=== PATIENT | female | born 1955 | race Caucasian/White ===

== ENCOUNTER → 2023-05-09 08:47 | Outpatient (REF) | payer MEDICARE, OTHER, SELFPAY ==
[2023-05-09 12:32] LABS: Microalbumin, Random Urine <0.6 mg/dl (0.6-1.7)
== END ==
LOC: HWLAB 08:47
PROVIDERS: ATTENDING PHYSICIAN Specialist; FAMILY PHYSICIAN Physician Assistant Medical
DX: I15.8 Other secondary hypertension (principal)
CPT/HCPCS: 36415; 82043; 82570

== ENCOUNTER → 2023-07-02 11:01 | Outpatient (REF) | payer MEDICARE, OTHER, SELFPAY ==
[2023-07-02 12:28] LABS: % Basophils 0.9 % (0-2); % Eosinophils 8.2 % (0-6); % Immature Granulocytes 0.2 % (0-0.5); % Lymphocytes 32.9 % (20.5-51.1); % Monocytes 6.9 % (1.7-9.3); % Neutrophils 50.9 % (42.2-75.2); Absolute Basophils 0.1 10^3/uL (0-0.2); Absolute Eosinophils 0.5 10^3/uL (0-0.7); Absolute Lymphocytes 1.8 10^3/uL (1.2-3.4); Absolute Monocytes 0.4 10^3/uL (0.1-0.6); Absolute Neutrophils 2.8 10^3/uL (1.4-6.5); Hematocrit 44.7 % (37.0-47.0); Hemoglobin 14.5 g/dL (12.0-16.0); Mean Corp Hgb Conc. 32.4 g/dL (33.0-37.0); Mean Corpuscular Hgb 28.9 pg (27.0-31.0); Mean Corpuscular Volume 89.2 fL (81.0-99.0); Mean Platelet Volume 11.6 fL (7.4-10.4); Nucleated Red Blood Cells % 0 %; Platelet Count 170 10^3/uL (130-400); Red Blood Cell Count 5.01 10^6/uL (4.20-5.40); Red Cell Dist. Width 13.2 % (11.5-14.5); White Blood Cell Count 5.5 10^3/uL (4.8-10.8)
[2023-07-02 13:27] LABS: ALT (SGPT) 20 U/L (0-35); AST (SGOT) 29 U/L (14-36); Albumin 4.4 g/dl (3.5-5.0); Alkaline Phosphatase 77 U/L (38-126); Blood Urea Nitrogen 17 mg/dl (7-17); Calcium 9.9 mg/dl (8.4-10.2); Carbon Dioxide 29 mmol/L (22-30); Chloride 102 mmol/L (98-107); Glucose 87 mg/dl (70-99); HDL Cholesterol 95 mg/dl; LDL Cholesterol, Calculated 49 mg/dl; Potassium 4.7 mmol/L (3.5-5.1); Sodium 137 mmol/L (135-145); Total Bilirubin 0.6 mg/dl (0.2-1.3); Total Cholesterol 159 mg/dl (50-199); Triglyceride 78 mg/dl (10-149); Very Low Density Lipoprotein 15 mg/dl (0-30); eGFR > 60.00
[2023-07-02 13:34] LABS: Vitamin D, 25-OH*** 50.8 ng/mL (30-80)
[2023-07-02 13:37] LABS: LDL Cholesterol, Direct 70 mg/dl
[2023-07-02 13:45] LABS: TSH 0.73 uIU/ml (0.47-4.68)
== END ==
LOC: REG 11:01
PROVIDERS: ATTENDING PHYSICIAN Nuclear Medicine Nuclear Cardiology; FAMILY PHYSICIAN Physician Assistant Medical; REFERRING PHYSICIAN Physician Assistant
DX: Z00.00 Encounter for general adult medical examination without abnormal findings (principal); E04.1 Nontoxic single thyroid nodule; E78.5 Hyperlipidemia, unspecified; I10 Essential (primary) hypertension; M81.0 Age-related osteoporosis without current pathological fracture; I25.2 Old myocardial infarction; E55.9 Vitamin D deficiency, unspecified; Z51.81 Encounter for therapeutic drug level monitoring
CPT/HCPCS: 36415; 80053; 80061; 82306; 83721; 84443; 85025

== ENCOUNTER → 2023-08-12 09:08 | Outpatient (REF) | payer MEDICARE, OTHER, SELFPAY | LOC: HWWDC 09:08 | PROVIDERS: ATTENDING PHYSICIAN Physician Assistant Medical; REFERRING PHYSICIAN Obstetrics & Gynecology Gynecology | DX: Z00.00 Encounter for general adult medical examination without abnormal findings (principal); E04.1 Nontoxic single thyroid nodule | CPT/HCPCS: 76536; 77063; 77067 ==

== ENCOUNTER → 2023-08-16 10:51 | Outpatient (REF) | payer MEDICARE, OTHER, SELFPAY | LOC: RAD 10:51 | PROVIDERS: ATTENDING PHYSICIAN Chiropractor; FAMILY PHYSICIAN Physician Assistant Medical | DX: M53.2X7 Spinal instabilities, lumbosacral region (principal); R10.2 Pelvic and perineal pain; M25.551 Pain in right hip | CPT/HCPCS: 72110; 72170; 73502 ==

== ENCOUNTER 2023-09-24 07:10 | Emergency (ER) | payer MEDICARE, OTHER, SELFPAY ==
[2023-09-24 07:10] VITALS: BMI 21.5
[2023-09-24 07:15] VITALS: BP 158/85
--- NOTE | 2023-09-24 07:51 | ED.GENMED ---
History of Present Illness
<Tori Muñoz PA-C - Last Filed: 09/25/23 10:08>
General
Chief Complaint: Fatigue
Source: patient
Exam Limitations: none
Time Seen by Provider: 09/24/23 07:28
Nursing documentation reviewed up to this point in time: agreed with
History of Present Illness
History of Present Illness:
pt is a 68 y/o F h/o primary hyperaldosteronism, htn, VA, no stents
here with concerns that she noticed early 2 am this morning with L face tingling/pain that felt strange when she woke up to use the bathroom and became nervous
she felt jittery and a little anxious
she didn't sleep well
woke up this morning 630 and checked her bp which was unusually high 180/70 and she toko an extra metoprolol (25 rather than 12.5) because she thought maybe it was high because she missed her dose last night. she noticed left arm tingling as well
no weakness, headache, cp, sob, vision changes, balance changes
but she feels a wiped out and a little lightheaded, not herself
[place] volunteering for the [employer]
she denies fever, chills, urinary sypmtoms
Past History
<Tori Muñoz PA-C - Last Filed: 09/25/23 10:08>
Past History
ED Past Medical History: CAD, HTN, Hypercholesterolemia, VA (Very small VA, neg cath, possible cornary spasm) and Hypothyroidism
ED Past Surgical History: Cardiac (Cardiac catheterization showed no significant obstructive disease)
Social History
Tobacco: Non-smoker
Alcohol: None
Personal:
Living: with family
Employment: Employed
Family History
Family History: Other (Mother with a history of atrial fibrillation )
Review of Systems
<Tori Muñoz PA-C - Last Filed: 09/25/23 10:08>
Review of Systems
Allergies reviewed?: Yes
All Other Systems: Not applicable
Phy Exam
<Tori Muñoz PA-C - Last Filed: 09/25/23 10:08>
Physical Exam
Physical Exam:
GENERAL: Alert , in no apparent distress
HEAD: NCAT
FACE: normal function, no asymmetry, normal sensation
EYE: pupils equal and reactive, no nystagmus, no photophobia
NECK: Supple,full rom, nontender
ENT: o/p clr, dry mouth; mild pharyngeal erythema
CARDIAC: Regular rate and rhythm . no edema
LUNGS: Clear breath sounds bilaterally, no acute respiratory distress, no wheezes/rales/rhonchi
ABDOMEN: Soft, without focal tenderness, no r/g, no cvat
NEUROLOGICAL: Alert and orientedx 4, cn intact, no facial asymmetry, 5/5 strength in UE/LE, sensation intact, sepcifically to face, objective facial numbness, romberg neg, ambulates without assistance, neg pronator drift
SKIN: Warm and dry, skin intact. no rash
MUSCULOSKELETAL: No edema, well perfused.
PSYCH: Normal and appropriate interaction.
Course
<Tori Muñoz PA-C - Last Filed: 09/25/23 10:08>
Orders/Labs/Results
Orders:
Orders
09/24/23 07:18
Electrocardiogram (*1) Urgent
Reason for Study: Fatigue / Weakness
EKG- Treatment ONCE
09/24/23 07:50
CT Head W/o Iv Contrast Urgent
Comment:
Reason For Exam: left face, left arm tingling
Cardiac Monitoring- Treatment ONCE
09/24/23 08:00
Complete Blood Count/With Diff Urgent
Comprehensive Metabolic Panel Urgent
Creatine Phosphokinase Urgent
Comment: ADD ON
Magnesium Urgent
TSH Reflex To Free T4 Urgent
Comment: ADD ON
Troponin I Urgent
09/24/23 08:15
Urinalysis Reflex To Culture Urgent
Date Specimen was Collected: 09/24/23
Time Specimen was Collected: 08:08
Urine Microscopic Reflex Cult Urgent
Urine Culture Urgent
SAM Source: U
Specimen Description:
Date Specimen was Collected: 09/24/23
Time Specimen was Collected: 08:08
09/24/23 09:01
Add On- LAB Urgent
Tests Added?: cpk
09/24/23 09:23
0.9% Sodium Chloride 500 ml [Nss] 500 ml IV BOLUS
09/24/23 09:24
EKG- Treatment ONCE
09/24/23 09:34
COVID-19 Antigen Urgent
Source: Nasal Swab
09/24/23 10:00
Add On- LAB Urgent
Tests Added?: tsh reflex t4
09/24/23 10:30
Electrocardiogram (*1) Urgent
Reason for Study: Fatigue / Weakness
09/24/23 10:32
Troponin I Urgent
09/24/23 11:29
CT Head & Neck Angio W/wo IV Urgent
Comment:
Reason For Exam: L face tingling, L arm tingling today
Abnormal Lab Results
09/24/23 09/24/23
08:00 08:15
MPV 10.5 H fL
(7.4-10.4)
Eosinophils % 7.6 H %
(0-6)
Carbon Dioxide 31 H mmol/L
(22-30)
BUN 24 H mg/dl
(7-17)
Creatinine 1.1 H mg/dL
(0.6-1.0)
Ur Occult Blood Reflex 3+ A
(Negative)
Leukocyte Esterase Rfl 1+ A
(Negative)
Urine RBC 16-20 A /HPF
(0-2)
Urine WBC (Reflex) 11-15 A /HPF
(0-5)
Urine Bacteria (Reflex) Few A
(Negative)
09/24/23 08:00
09/24/23 08:00
Vital Signs
Initial and Last Documented VS:
Initial Vital Signs
Temp Pulse Resp BP Pulse Ox
97.9 F 53 16 158/85 98
09/24/23 07:15 09/24/23 07:15 09/24/23 07:15 09/24/23 07:15 09/24/23 07:15
Last Documented Vital Signs
Temp Pulse Resp BP Pulse Ox
97.9 F 59 16 146/79 98
09/24/23 07:15 09/24/23 09:19 09/24/23 09:19 09/24/23 08:00 09/24/23 09:00
<Jan Morillo, DO - Last Filed: 09/25/23 11:05>
Orders/Labs/Results
Orders:
Orders
09/24/23 07:18
Electrocardiogram (*1) Urgent
Reason for Study: Fatigue / Weakness
EKG- Treatment ONCE
09/24/23 07:50
CT Head W/o Iv Contrast Urgent
Comment:
Reason For Exam: left face, left arm tingling
Cardiac Monitoring- Treatment ONCE
09/24/23 08:00
Complete Blood Count/With Diff Urgent
Comprehensive Metabolic Panel Urgent
Creatine Phosphokinase Urgent
Comment: ADD ON
Magnesium Urgent
TSH Reflex To Free T4 Urgent
Comment: ADD ON
Troponin I Urgent
09/24/23 08:15
Urinalysis Reflex To Culture Urgent
Date Specimen was Collected: 09/24/23
Time Specimen was Collected: 08:08
Urine Microscopic Reflex Cult Urgent
Urine Culture Urgent
SAM Source: U
Specimen Description:
Date Specimen was Collected: 09/24/23
Time Specimen was Collected: 08:08
09/24/23 09:01
Add On- LAB Urgent
Tests Added?: cpk
09/24/23 09:23
0.9% Sodium Chloride 500 ml [Nss] 500 ml IV BOLUS
09/24/23 09:24
EKG- Treatment ONCE
09/24/23 09:34
COVID-19 Antigen Urgent
Source: Nasal Swab
09/24/23 10:00
Add On- LAB Urgent
Tests Added?: tsh reflex t4
09/24/23 10:30
Electrocardiogram (*1) Urgent
Reason for Study: Fatigue / Weakness
09/24/23 10:32
Troponin I Urgent
09/24/23 11:29
CT Head & Neck Angio W/wo IV Urgent
Comment:
Reason For Exam: L face tingling, L arm tingling today
Abnormal Lab Results
09/24/23 09/24/23
08:00 08:15
MPV 10.5 H fL
(7.4-10.4)
Eosinophils % 7.6 H %
(0-6)
Carbon Dioxide 31 H mmol/L
(22-30)
BUN 24 H mg/dl
(7-17)
Creatinine 1.1 H mg/dL
(0.6-1.0)
Ur Occult Blood Reflex 3+ A
(Negative)
Leukocyte Esterase Rfl 1+ A
(Negative)
Urine RBC 16-20 A /HPF
(0-2)
Urine WBC (Reflex) 11-15 A /HPF
(0-5)
Urine Bacteria (Reflex) Few A
(Negative)
09/24/23 08:00
09/24/23 08:00
Vital Signs
Initial and Last Documented VS:
Initial Vital Signs
Temp Pulse Resp BP Pulse Ox
97.9 F 53 16 158/85 98
09/24/23 07:15 09/24/23 07:15 09/24/23 07:15 09/24/23 07:15 09/24/23 07:15
Last Documented Vital Signs
Temp Pulse Resp BP Pulse Ox
97.9 F 59 16 146/79 98
09/24/23 07:15 09/24/23 09:19 09/24/23 09:19 09/24/23 08:00 09/24/23 09:00
<Tori Muñoz PA-C - Last Filed: 09/25/23 10:08>
MDM/Problems Addressed
Differential Diagnosis Includes:
cva, mi, electrolyte disturbance
MDM/Problems Addressed:
68 y/o F with h/o VA, cad, htn, hld, migraines, hypothyroid
here with feeling of tinglin in left lower face as well as some discomfort in her jaw that she noticed around 3 am
also then later woke up with L arm tingling
sypmtmos in her arm resolved
but she had elevated BP this morning, which is unusual; she treated herself with an extra dose of metoprolol in case she missed last nights and forgot
now bp imroved, and L arm tingling improved
she had some mild L facial discomforta nd tingling here and feeling of anxiety
exam is nonfocal
no objective sensory deficit
no weakness
ekg sinus coty (typical hr in the 50s)
2 trop neg
while here, facial tingling resolved
seen by ed attending and neurology attending whor ecommended CTA head/neck which was also normal
it was suggested by neuro that her sypmtoms could be cervical/spinal - stenosis which pt has h/o
recommended ct cervical spine; but pt without cauda equina symtposm or trauma and she declined
will obtain as outpatient
d/c home
<Tori Muñoz PA-C - Last Filed: 09/25/23 10:08>
*Critical Care Note
Total Time (30-74mins, 75-104mins- exclusive of procedures): Not Applicable
ED Attending Note
<Tori Muñoz PA-C - Last Filed: 09/25/23 10:08>
-
Portions of this chart may have been created with voice recognition software.� Occasional wrong word or��sound alike� substitutions may have occurred due to the inherent limitations of voice recognition software.
<Jan Morillo DO - Last Filed: 09/25/23 11:05>
ED Attending Note
Patient seen and examined by attending physician: Yes
I performed the substantive portion of visit, reviewed & personally made and approve the management plan that is documented in note by myself or KERMIT.: Yes
I performed a history and physical exam of patient and discussed management with resident, I reviewed resident's note and agree with documented findings and plan of care.: Yes
ED Attending Note:
I evaluated patient at bedside. The patient has no sensory deficits nor any motor deficits on physical examination. She is well-appearing.
Discharge Plan
Departure
Patient Disposition: Home (Routine Discharge)
Date of Disposition: 09/24/23
Time of Disposition: 13:21
Patient with high blood pressure during this ER visit?: No
Condition: Fair
Covid-19: Not Applicable
Discharge Problem:
Facial paresthesia
Instructions: Paresthesia (DC), BLOOD PRESSURE
Prescriptions:
No Action
levothyroxine [Synthroid] 100 MCG tablet
75 mcg PO DAILY
eplerenone 25 MG tablet
75 mg PO HS
lamotrigine 25 MG tablet, chewable dispersible
75 mg PO BID
fexofenadine [Keesha] 60 MG tablet
180 mg PO HS PRN (Reason: congestion/allergies ) Qty: 0 0RF
amlodipine 2.5 MG tablet
2.5 mg PO HS
metoprolol tartrate 50 MG tablet
12.5 mg PO BID
atorvastatin 40 MG tablet
40 mg PO QPM
famotidine 40 MG tablet
40 mg PO DAILY
aspirin 81 MG tablet,chewable
81 mg PO DAILY
Referrals:
Tsering Mesa PA-C [Family Provider] - Tomorrow
Activity Restrictions/Additional Instructions:
Were not sure the cause of your symptoms. Your blood pressure did improve but it is still slightly elevated.
You should follow-up with your family doctor tomorrow. We did lab work to evaluate for any signs of of stress on your heart
Your urine did look infected but it could be contaminated. Since you are not having urinary symptoms were going to wait on the urine culture and we will call you if you need antibiotics. Should you start to develop urinary symptoms you can call
your doctor or call me, I will be here tomorrow 10-7
In the meantime continue your medications. Return for any worsening symptoms like severe headache, weakness, worsening numbness, chest pain or shortness of breath.
Was also recommended that you should have a cervical spine MRI or CT scan to evaluate for spinal stenosis.
Please call your doctor regarding this
Interventions
Interventions:
*Risk Screen - Suicide Last Done: 09/24/23 07:23
*General Assessment Last Done: 09/24/23 07:29
*Neglect/Abuse Screening Last Done: 09/24/23 07:23
ED- Fall Risk Assessment Last Done: 09/24/23 07:34
*ED COVID-19 Vaccine History Last Done: 09/24/23 07:28
*Nursing Disposition Last Done: 09/24/23 14:09
Discharge Date and Time
Discharge Date/Time: 09/24/23 14:28
Print Language: HUNGARIAN
[2023-09-24 08:00] VITALS: BP 146/70; BP 146/79
[2023-09-24 08:10] LABS: % Basophils 0.8 % (0-2); % Eosinophils 7.6 % (0-6); % Immature Granulocytes 0.2 % (0-0.5); % Lymphocytes 28.6 % (20.5-51.1); % Neutrophils 54.8 % (42.2-75.2); Absolute Eosinophils 0.4 10^3/uL (0-0.7); Absolute Lymphocytes 1.5 10^3/uL (1.2-3.4); Absolute Monocytes 0.4 10^3/uL (0.1-0.6); Absolute Neutrophils 2.8 10^3/uL (1.4-6.5); Hematocrit 40.8 % (37.0-47.0); Hemoglobin 13.6 g/dL (12.0-16.0); Mean Corp Hgb Conc. 33.3 g/dL (33.0-37.0); Mean Corpuscular Hgb 29.3 pg (27.0-31.0); Mean Corpuscular Volume 87.9 fL (81.0-99.0); Mean Platelet Volume 10.5 fL (7.4-10.4); Nucleated Red Blood Cells % 0 %; Platelet Count 153 10^3/uL (130-400); Red Blood Cell Count 4.64 10^6/uL (4.20-5.40); Red Cell Dist. Width 13.2 % (11.5-14.5); White Blood Cell Count 5.1 10^3/uL (4.8-10.8)
[2023-09-24 08:24] LABS: Urine Albumin Negative (Neg - Trace); Urine Bilirubin Negative (Negative); Urine Character Clear (Clear); Urine Color Yellow; Urine Glucose Negative (Negative); Urine Ketone Negative (Negative); Urine Leukocyte 1+ (Negative); Urine Nitrite Negative (Negative); Urine Occult Blood 3+ (Negative); Urine Specific Gravity 1.015 (<1.030); Urine Urobilinogen Negative (Neg - 1+)
[2023-09-24 08:27] LABS: ALT (SGPT) 21 U/L (0-35); AST (SGOT) 26 U/L (14-36); Albumin 4.2 g/dl (3.5-5.0); Alkaline Phosphatase 97 U/L (38-126); Blood Urea Nitrogen 24 mg/dl (7-17); Calcium 9.8 mg/dl (8.4-10.2); Carbon Dioxide 31 mmol/L (22-30); Chloride 101 mmol/L (98-107); Estimated Creatinine Clearance 46 ml/min; Glucose 91 mg/dl (70-99); Potassium 3.9 mmol/L (3.5-5.1); Sodium 136 mmol/L (135-145); Total Bilirubin 0.4 mg/dl (0.2-1.3); Total Protein 6.5 g/dl (6.3-8.2); eGFR 54.06
[2023-09-24 08:38] LABS: Troponin I < 0.012 ng/ml
[2023-09-24 08:58] LABS: Urine Squamous Cell 16-20 /LPF (Few); Urine Urothelial Cell 0-2 /LPF (FEW)
[2023-09-24 09:10] LABS: Urine Bacteria Few (Negative); Urine Red Blood Cell 16-20 /HPF (0-2)
[2023-09-24] MEDS: NSS 500 IV (09:31)
[2023-09-24 09:53] LABS: Creatine Phosphokinase 83 U/L (30-135)
[2023-09-24 09:57] LABS: COVID-19 Antigen Negative (Negative)
[2023-09-24 11:25] LABS: Troponin I < 0.012 ng/ml
[2023-09-24 12:39] LABS: TSH Reflex To Free T4 0.83 uIU/ml (0.47-4.68)
== END 2023-09-24 14:28 | disposition home or self-care (01) ==
LOC: EMR 07:10
PROVIDERS: Physician Assistant; EMERGENCY PHYSICIAN Emergency Medicine; FAMILY PHYSICIAN Physician Assistant Medical
DX: R20.2 Paresthesia of skin (principal); R53.83 Other fatigue; E26.9 Hyperaldosteronism, unspecified; I10 Essential (primary) hypertension; I25.2 Old myocardial infarction; I25.10 Atherosclerotic heart disease of native coronary artery without angina pectoris; E03.9 Hypothyroidism, unspecified; E78.00 Pure hypercholesterolemia, unspecified; F41.9 Anxiety disorder, unspecified
CPT/HCPCS: 99284; 96360; 70450; 70496; 70498; 80053; 81003; 81015; 82550; 83735; 84443; 84484; 85025; 87086; 87811; 93005; Q9967

== ENCOUNTER → 2023-12-23 06:18 | Day surgery (SDC) | payer MEDICARE, OTHER, SELFPAY | LOC: GI 06:18 | PROVIDERS: ATTENDING PHYSICIAN Internal Medicine Gastroenterology | DX: Z12.11 Encounter for screening for malignant neoplasm of colon (principal); D12.8 Benign neoplasm of rectum; K64.8 Other hemorrhoids; K44.9 Diaphragmatic hernia without obstruction or gangrene; K31.7 Polyp of stomach and duodenum; R12 Heartburn; Z98.890 Other specified postprocedural states | CPT/HCPCS: 45380; 43239; 88305 ==

== ENCOUNTER → 2024-01-27 09:39 | Outpatient (REF) | payer MEDICARE, OTHER, SELFPAY | LOC: RAD 09:39 | PROVIDERS: ATTENDING PHYSICIAN Internal Medicine Rheumatology; FAMILY PHYSICIAN Physician Assistant Medical | DX: M81.0 Age-related osteoporosis without current pathological fracture (principal) | CPT/HCPCS: 77080 ==

== ENCOUNTER → 2024-01-30 11:24 | Outpatient (REF) | payer MEDICARE, OTHER, SELFPAY ==
[2024-01-30 12:32] LABS: Blood Urea Nitrogen 25 mg/dl (7-17); Calcium 9.9 mg/dl (8.4-10.2); Carbon Dioxide 32 mmol/L (22-30); Chloride 100 mmol/L (98-107); Glucose 82 mg/dl (70-99); Potassium 4.8 mmol/L (3.5-5.1); Sodium 140 mmol/L (135-145); eGFR 54.06
== END ==
LOC: RAD 11:24
PROVIDERS: ATTENDING PHYSICIAN Student in an Organized Health Care Education/Training Program
DX: R10.9 Unspecified abdominal pain (principal); Z29.9 Encounter for prophylactic measures, unspecified
CPT/HCPCS: 36415; 74177; 80048; Q9967

== ENCOUNTER → 2024-05-25 11:39 | Outpatient (REF) | payer MEDICARE, OTHER, SELFPAY | LOC: DHSLP 11:39 | PROVIDERS: ATTENDING PHYSICIAN Internal Medicine | DX: G47.33 Obstructive sleep apnea (adult) (pediatric) (principal) | CPT/HCPCS: 95800 ==

== ENCOUNTER → 2024-09-09 10:22 | Outpatient (REF) | payer MEDICARE, OTHER, SELFPAY | LOC: HWWDC 10:22 | PROVIDERS: ATTENDING PHYSICIAN Physician Assistant Medical; REFERRING PHYSICIAN Obstetrics & Gynecology Gynecology | DX: Z12.31 Encounter for screening mammogram for malignant neoplasm of breast (principal); E04.1 Nontoxic single thyroid nodule | CPT/HCPCS: 76536; 77063; 77067 ==

== ENCOUNTER → 2024-10-18 06:56 | Outpatient (REF) | payer MEDICARE, OTHER, SELFPAY | LOC: DHSLP 06:56 | PROVIDERS: ATTENDING PHYSICIAN Internal Medicine; FAMILY PHYSICIAN Physician Assistant Medical | DX: G47.33 Obstructive sleep apnea (adult) (pediatric) (principal); G47.31 Primary central sleep apnea; G47.61 Periodic limb movement disorder | CPT/HCPCS: 95811 ==